=== PATIENT | male | born 1955 | race Caucasian/White ===

== ENCOUNTER 2016-11-16 15:59 | Emergency (ER) | payer OTHER ==
[2016-11-16] MEDS ORDERED: ONDANSETRON DISINTEGRATING 4 MG TAB PO ONE (17:15)
--- NOTE | 2016-11-16 17:29 | EDPHY ---
H & P Stated Complaint: flu like symptoms/fever body aches han chills since zometa infusion yesterda Time Seen by Provider: 11/16/16 17:15 HPI/ROS: CHIEF COMPLAINT: Fever body aches HISTORY OF PRESENT ILLNESS: This is a 61-year-old male presenting to the emergency department complaining of fever and body aches onset at 5 o'clock this morning. Patient states he received his 1st injection of Zometa yesterday was fine yesterday evening, fever at 9 o'clock this morning was 102 patient did take 975 mg of Tylenol, rechecked his temperature at 1430 temp was 100.6 took 975 mg of Tylenol at the time. 1626 36.7 . Patient states does not feel feverish she still has body aches like he is coming down with flow, nausea no vomiting. He did speak with his physicians at [facility] they wanted him to follow up on Saturday but he decided to come to the ED today. Patient reports a history of prostate cancer, receiving treatments for osteoporosis. Patient also reports prior to the infusion of Zometa patient received an injection of Degarelix "I do not know if it is the injection of Degarelix that is causing me to feel crappy or the addition to the infusion which is adding to this". REVIEW OF SYSTEMS: Constitutional: Fever chills body aches Eyes: No discharge. ENT: No sore throat. Cardiovascular: No chest pain, no palpitations. Respiratory: No cough, no shortness of breath. Gastrointestinal: No abdominal pain, no vomiting. Nausea Genitourinary: No hematuria. Musculoskeletal: No back pain. Skin: No rashes. Neurological: No headache. Source: Patient - Personal History Current Tetanus/Diphtheria Vaccine: Yes - Medical/Surgical History Hx Asthma: No Hx Chronic Respiratory Disease: No Hx Diabetes: No Hx Cardiac Disease: No Hx Renal Disease: No Hx Cirrhosis: No Hx Alcoholism: No Hx HIV/AIDS: No Hx Splenectomy or Spleen Trauma: No Other PMH: prostate cancer - Social History Smoking Status: Never smoked - Physical Exam Exam: General Appearance: Alert, no distress. Non ill-appearing nontoxic Eyes: Pupils equal and round no pallor or injection. ENT, Mouth: Mucous membranes dry Respiratory: There are no retractions, lungs are clear to auscultation. Cardiovascular: Regular rate and rhythm. Gastrointestinal: Abdomen is soft and nontender, no masses, bowel sounds normal. Neurological: No focal deficits. Answering questions appropriately Skin: Warm and dry, no rashes. Musculoskeletal: Neck is supple nontender. No cervical anterior lymphadenopathy Extremities: symmetrical, full range of motion. Constitutional: Initial Vital Signs Temperature (C) 36.7 C 11/16/16 16:26 Heart Rate 81 11/16/16 16:26 Respiratory Rate 20 11/16/16 16:26 Blood Pressure 113/69 11/16/16 16:26 O2 Sat (%) 95 11/16/16 16:26 O2 Delivery Mode Room Air Allergies/Adverse Reactions: morphine [Morphine] Allergy (Unknown, Verified 11/16/16 16:24) Home Medications: Medication Instructions Recorded Abiraterone Acetate 11/16/16 CLONAZEPAM 11/16/16 Degarelix Acetate 11/16/16 GABAPENTIN 11/16/16 Prednisone 11/16/16 Zometa 11/16/16 traZODone 11/16/16 Medical Decision Making ED Course/Re-evaluation: Discussed ED plan of care: CBC, CMP, IV fluids for dehydration, Zofran for nausea 1914: Discussed all lab results with patient. Patient states he is feeling better. No apparent distress no headache no dizziness no nausea. Discharge home---> stable, discussed all discharge instructions with patient Differential Diagnosis: Other differential diagnosis considered but not limited to anaphylaxis, sepsis, and uticaria - Data Points Laboratory Results: Laboratory Results 11/16/16 17:45 11/16/16 17:45 11/16/16 11/16/16 17:45 17:45 WBC 6.55 10^3/uL 10^3/uL (3.80-9.50) RBC 4.43 10^6/uL 10^6/uL (4.40-6.38) Hgb 14.2 g/dL g/dL (13.7-17.5) Hct 41.4 % % (40.0-51.0) MCV 93.5 fL fL (81.5-99.8) MCH 32.1 pg pg (27.9-34.1) MCHC 34.3 g/dL g/dL (32.4-36.7) RDW 13.1 % % (11.5-15.2) Plt Count 174 10^3/uL 10^3/uL (150-400) MPV 10.0 fL fL (8.7-11.7) Neut % (Auto) 90.0 % H % (39.3-74.2) Lymph % (Auto) 5.6 % L % (15.0-45.0) [place] % (Auto) 3.7 % L % (4.5-13.0) Eos % (Auto) 0.2 % L % (0.6-7.6) Baso % (Auto) 0.3 % % (0.3-1.7) Nucleat RBC Rel Count 0.0 % % (0.0-0.2) Absolute Neuts (auto) 5.90 10^3/uL 10^3/uL (1.70-6.50) Absolute Lymphs (auto) 0.37 10^3/uL L 10^3/uL (1.00-3.00) Absolute Monos (auto) 0.24 10^3/uL L 10^3/uL (0.30-0.80) Absolute Eos (auto) 0.01 10^3/uL L 10^3/uL (0.03-0.40) Absolute Basos (auto) 0.02 10^3/uL 10^3/uL (0.02-0.10) Absolute Nucleated RBC 0.00 10^3/uL 10^3/uL (0-0.01) Immature Gran % 0.2 % % (0.0-1.1) Immature Gran # 0.01 10^3/uL 10^3/uL (0.00-0.10) Sodium 138 mEq/L mEq/L (134-144) Potassium 4.1 mEq/L mEq/L (3.5-5.2) Chloride 107 mEq/L mEq/L (97-110) Carbon Dioxide 22 mEq/l mEq/l (22-31) Anion Gap 9 mEq/L mEq/L (8-16) BUN 14 mg/dL mg/dL (7-23) Creatinine 0.9 mg/dL mg/dL (0.7-1.3) Estimated GFR > 60 Glucose 101 mg/dL H mg/dL (70-100) Calcium 9.8 mg/dL mg/dL (8.5-10.4) Total Bilirubin 1.2 mg/dL mg/dL (0.1-1.4) AST 32 IU/L IU/L (17-59) ALT 69 IU/L IU/L (21-72) Alkaline Phosphatase 56 IU/L IU/L (38-126) Total Protein 6.2 g/dL L g/dL (6.3-8.2) Albumin 3.7 g/dL g/dL (3.5-5.0) Medications Given: Discontinued Medications Sodium Chloride (Ns) 1,000 mls @ 0 mls/hr IV ONCE ONE PRN Reason: Wide Open Stop: 11/16/16 17:36 Last Admin: 11/16/16 17:45 Dose: 1,000 mls Ondansetron HCl (Zofran Odt) 4 mg PO EDNOW ONE Stop: 11/16/16 17:16 Last Admin: 11/16/16 17:46 Dose: Not Given Ondansetron HCl (Zofran) 4 mg IVP EDNOW ONE Stop: 11/16/16 17:36 Last Admin: 11/16/16 17:46 Dose: 4 mg Departure - Departure Disposition: Home, Routine, Self-Care Clinical Impression: Fever Qualifiers: Fever type: drug-induced Qualified Code(s): R50.2 - Drug induced fever Condition: Good Instructions: Fever in Adults (ED) Additional Instructions: 1. Monitor temperature for the next 24 hours. Continue taking Tylenol as needed 2. I would recommend no additional infusions of the Zometa. Follow up with your primary care provider next week 3. If any symptoms worsen, such as: Unresolving fever, nausea vomiting chest pain shortness of breath return to the ER Referrals: Sven Linares MD [Primary Care Provider] - As per Instructions
[2016-11-16] MEDS ORDERED: ONDANSETRON 4 MG/2 ML VIAL IVP ONE (17:35)
[2016-11-16] MEDS ORDERED: NS 1,000 ML IV ONE (17:35)
[2016-11-16 17:57] LABS: % IMMATURE GRANULYOCYTES 0.2 % (0.0-1.1); ABSOLUTE IMMATURE GRANULOCYTES 0.01 10^3/uL (0.00-0.10); ADD DIFF? NO; ADD MORPH? NO; ADD SCAN? NO; ATYPICAL LYMPHOCYTE FLAG 0 (0-99); FRAGMENT RBC FLAG 0 (0-99); HEMATOCRIT 41.4 % (40.0-51.0); HEMOGLOBIN 14.2 g/dL (13.7-17.5); LEFT SHIFT FLG 30 (0-99); LIPEMIA HEMOLYSIS FLAG 90 (0-99); MEAN CELL HEMOGLOBIN 32.1 pg (27.9-34.1); MEAN CELL HEMOGLOBIN CONCENTR. 34.3 g/dL (32.4-36.7); MEAN CELL VOLUME 93.5 fL (81.5-99.8); PLATELET CLUMPS FLAG 20 (0-99); PLATELET COUNT 174 10^3/uL (150-400); RED BLOOD CELL COUNT 4.43 10^6/uL (4.40-6.38); RED CELL DISTRIBUTION WIDTH 13.1 % (11.5-15.2)
[2016-11-16 18:20] LABS: ALANINE AMINOTRANSFERASE 69 IU/L (21-72); ALBUMIN 3.7 g/dL (3.5-5.0); ALKALINE PHOSPHATASE 56 IU/L (38-126); ANION GAP 9 mEq/L (8-16); ASPARTATE AMINOTRANSFERASE 32 IU/L (17-59); BILIRUBIN,TOTAL 1.2 mg/dL (0.1-1.4); CALCIUM 9.8 mg/dL (8.5-10.4); CARBON DIOXIDE 22 mEq/l (22-31); CHLORIDE 107 mEq/L (97-110); CREATININE 0.9 mg/dL (0.7-1.3); GLOMERULAR FILTRATION RATE > 60; GLUCOSE 101 mg/dL (70-100); POTASSIUM 4.1 mEq/L (3.5-5.2); SODIUM 138 mEq/L (134-144); TOTAL PROTEIN 6.2 g/dL (6.3-8.2)
[2016-11-16 19:15] VITALS: BP 128/71; PULSE 84; RESP 15; TEMP 98.8; O2SAT 93
== END 2016-11-16 19:41 | disposition home or self-care (01) ==
DX: R50.2 Drug induced fever (principal); T50.995A Adverse effect of other drugs, medicaments and biological substances, initial encounter; Z85.46 Personal history of malignant neoplasm of prostate
CPT/HCPCS: 96374; J2405